=== PATIENT | female | born 1965 | race African-American/Black ===

== ENCOUNTER 2019-01-29 10:19 | Emergency (ER) | payer MEDICAID, OTHER ==
[~2019-01-29] VITALS: Ht 154.9 cm; Wt 65.8 kg
[2019-01-29 10:45] VITALS: BP 109/65
== END 2019-01-29 11:23 | disposition home or self-care (01) ==
LOC: ER 10:27
DX: B02.9 Zoster without complications (principal); I10 Essential (primary) hypertension

== ENCOUNTER 2019-04-07 10:28 | Emergency (ER) | payer MEDICAID ==
[~2019-04-07] VITALS: Ht 154.9 cm; Wt 72.6 kg
[2019-04-07 10:28] VITALS: BP 117/65
== END 2019-04-07 12:26 | disposition home or self-care (01) ==
LOC: ER 10:28
DX: B02.9 Zoster without complications (principal); I10 Essential (primary) hypertension

== ENCOUNTER 2019-06-14 11:36 | Emergency (ER) | payer MEDICAID ==
[~2019-06-14] VITALS: Ht 154.9 cm; Wt 68.0 kg
[2019-06-14 13:05] VITALS: BP 108/64
== END 2019-06-14 14:15 | disposition home or self-care (01) ==
LOC: ER 11:36
DX: B02.9 Zoster without complications (principal); I10 Essential (primary) hypertension

== ENCOUNTER 2022-10-01 22:25 | Emergency (ER) | payer MEDICAID, OTHER ==
[~2022-10-01] VITALS: Ht 167.6 cm; Wt 68.0 kg
[2022-10-02] MEDS ORDERED: PERCOT PO (06:18)
[2022-10-02] MEDS ORDERED: ONDA-144 PO (06:18)
[2022-10-02] MEDS ORDERED: HYDROcodone-ACET 5/325MG TAB PO ONE (06:30)
[2022-10-02 07:15] VITALS: BP 123/69
== END 2022-10-02 05:57 | disposition home or self-care (01) ==
LOC: ER 22:25 → EDUNIT# 22:25 → EDBD 22:25 → ER 10-02 05:57
DX: R07.89 Other chest pain (principal); G44.309 Post-traumatic headache, unspecified, not intractable; I11.0 Hypertensive heart disease with heart failure; I50.9 Heart failure, unspecified; V43.52XA Car driver injured in collision with other type car in traffic accident, initial encounter; Y93.89 Activity, other specified; Y92.488 Other paved roadways as the place of occurrence of the external cause; Y99.8 Other external cause status
CPT/HCPCS: 70450; 71250; 72125; 74176; 93005